=== PATIENT | female | born 1980 | race Caucasian/White ===

== ENCOUNTER 2024-07-27 10:48 | Emergency (ER) | payer OTHER, SELFPAY ==
[2024-07-27 10:56] VITALS: BP 148/75; PULSE 72; TEMP 36.8; O2SAT 100; BMI 38.3
--- NOTE | 2024-07-27 11:14 | ED.GENADUL1 ---
HPI HPI - General Adult General Chief complaint: Extremity Injury, Upper Stated complaint: LOWER EXTREMITY PAIN Time Seen by Provider: 07/27/24 10:55 Source: patient Mode of arrival: Wheelchair History of Present Illness HPI narrative: Patient presents to ED complaining of right sided hip and leg pain. She says she has a history of back problems in the past but never formally diagnosed with sciatica. Patient states she does have a history of neck surgery by Dr. Roblero in the past. She also has a history of gastric bypass surgery. She said over the past few days her back has been achy but today it was a lot worse. She said the pain is in the right lower back radiating around the right hip and down to the foot. She said she took some aspirin but it did not really help. She said she is having trouble finding a comfortable position. No numbness or tingling in the leg. Normal pulses and distal sensation. Denies IV drug use. No fevers. No neurological deficits no loss of bowel or bladder function. Related Data Previous Rx's ?Medication ?Instructions ?Recorded cyclobenzaprine 10 mg tablet 10 mg PO TID #14 tabs 07/27/24 methylprednisolone 4 mg tablets in 4 mg PO DAILY #21 ea 07/27/24 a dose pack (Medrol (Allan)) oxycodone-acetaminophen 5 mg-325 1 tab PO Q6H #14 tabs 07/27/24 mg tablet (Percocet) Allergies Allergy/AdvReac Type Severity Reaction Status Date / Time pseudoephedrine Allergy heart Verified 07/27/24 10:56 racing sulfamethoxazole (From Allergy Swelling Verified 07/27/24 10:56 Bactrim) of Lip/Tongue/Throat trimethoprim (From Bactrim) Allergy Swelling Verified 07/27/24 10:56 of Lip/Tongue/Throat Opioid HPI Opioid Management Most Recent Opioid Data: Last Pain Scale 7 07/27/24 11:39 07/27/24 Last ED Pain Assessment 07/27/24 11:00 Last MAR Pain Assessment 07/27/24 11:39 Review of Systems ROS Status of ROS 10 or more systems reviewed and unremarkable except as noted in history and below PFSH PFSH Social History Little interest or pleasure in doing things: not at all Feeling down, depressed, or hopeless: not at all Exam Narrative Exam Narrative: General: alert, no acute distress Cardiovascular: regular rate and rhythm, normal peripheral perfusion. Respiratory: Lungs CTA, respirations non labored. Extremities: no deformity, no trauma. Neurological: oriented x 4, LOC appropriate for age. Tenderness to palpation in the right lumbar paraspinal and SI joint area. Pain radiates around the hip and down the leg. Normal distal pulses and sensation and proprioception. Normal distal strength. Abdomen soft nontender nondistended Constitutional Vital Signs, click to edit/add: Last Vital Signs Temp 98.2 F 07/27/24 10:56 Pulse 65 07/27/24 12:07 Resp 18 07/27/24 12:07 BP 132/78 07/27/24 12:07 Pulse Ox 97 07/27/24 12:07 O2 Del Method Room Air 07/27/24 12:07 Course Vital Signs Vital signs: Vital Signs Temperature 98.2 F 07/27/24 10:56 Pulse Rate 72 07/27/24 10:56 Respiratory Rate 16 07/27/24 10:56 Blood Pressure 148/75 H 07/27/24 10:56 Pulse Oximetry 100 07/27/24 10:56 Oxygen Delivery Method Room Air 07/27/24 10:56 Temperature 98.2 F 07/27/24 10:56 Pulse Rate 65 07/27/24 12:07 Respiratory Rate 18 07/27/24 12:07 Blood Pressure 132/78 07/27/24 12:07 Pulse Oximetry 97 07/27/24 12:07 Oxygen Delivery Method Room Air 07/27/24 12:07 Medical Decision Making MDM Narrative Medical decision making narrative: Patient most likely has sciatica nerve pain. She received Toradol Norflex and steroid injection. She is feeling better after the injections. I will send her home with pain medication muscle relaxer and Medrol Dosepak. Patient is already established with Dr. Roblero as well as instructed to make a follow-up appointment. Return to ED if worsening symptoms otherwise follow-up outpatient. She was ambulatory and stable prior to discharge. Patient comfortable care plan for home Differential Diagnosis Differential Diagnosis: Lumbar strain, sciatica Discharge Plan Discharge Chief Complaint: Extremity Injury, Upper Clinical Impression: Sciatic leg pain Patient Disposition: Home, Self-Care Time of Disposition Decision: 12:08 Condition: Good Mode of Transportation: Private Vehicle Prescriptions / Home Meds: New cyclobenzaprine 10 mg tablet 10 mg PO TID Qty: 14 0RF methylprednisolone [Medrol (Allan)] 4 mg tablets,dose pack 4 mg PO DAILY Qty: 21 0RF Rx Instructions: disp medrol allan use as directed oxycodone-acetaminophen [Percocet] 5-325 mg tablet 1 tab PO Q6H Qty: 14 0RF Print Language: Guatemalan Instructions: Back Pain (ED) Referrals: YARI ROBLERO [Physician] - 1 week Abdi Chan MD [Primary Care Provider] - 1 week
[2024-07-27] MEDS: KETOROLAC TROMETHAMINE 60 MG/2 ML VIAL IM (11:39)
[2024-07-27] MEDS: ORPHENADRINE 60 MG/ 2 ML VIAL IM (11:40)
[2024-07-27] MEDS: DEXAMETHASONE SOD PHOS 10 MG/ML VIAL IM (11:40)
[2024-07-27 12:07] VITALS: BP 132/78; PULSE 65; O2SAT 97
== END 2024-07-27 12:32 | disposition home or self-care (01) ==
PROVIDERS: Emergency Provider Emergency Medicine; PCP Family Medicine
DX: M54.31 Sciatica, right side (principal); Z98.84 Bariatric surgery status
CPT/HCPCS: 96372; 99284; J1100; J1885; J2360